=== PATIENT | female | born 1940 | race Caucasian/White ===

== ENCOUNTER → 2016-12-06 17:08 | Outpatient (CLI) | payer MEDICARE, OTHER ==
[2010-03-08 11:27] VITALS: BMI 30.8
== END | disposition home or self-care (01) ==
LOC: D.MAMMO 15:15
DX: Z12.31 Encounter for screening mammogram for malignant neoplasm of breast (principal)

== ENCOUNTER → 2018-01-07 19:59 | Outpatient (CLI) | payer MEDICARE, OTHER ==
[2010-03-08 11:27] VITALS: BMI 30.8
== END | disposition home or self-care (01) ==
LOC: D.MAMMO 01-03 15:30
DX: Z12.31 Encounter for screening mammogram for malignant neoplasm of breast (principal)

== ENCOUNTER → 2019-03-05 12:30 | Outpatient (CLI) | payer MEDICARE, OTHER ==
[2010-03-08 11:27] VITALS: BMI 30.8
== END | disposition home or self-care (01) ==
LOC: D.MAMMO 03-03 11:45
PROVIDERS: ATTEND Internal Medicine
DX: Z12.31 Encounter for screening mammogram for malignant neoplasm of breast (principal)